=== PATIENT | female | born 1975 | race Caucasian/White ===

== ENCOUNTER 2019-05-29 10:25 | Day surgery (SDC) | payer SELFPAY ==
[2019-05-25 08:41] VITALS: BMI 23.1
[~2019-05-29 10:25] MED LIST: DEXAMETHASONE SOD PHOSPHATE 10 MG/ML 1 ML VIAL IV ONE; HYDROmorphone 0.5 MG/0.5 ML SYRINGE IVP PRN; LACTATED RINGERS 1,000 ML IV SCH; LIDOCAINE 1% 20 ML VIAL (10MG/ML) FOR IV START INTRADERMA PRN; ONDANSETRON 4 MG/2 ML VIAL IVP ONE; Pre Op ABX Message 1 EACH MISC MISCELLANE ONE; fentaNYL (PF) 50 MCG/ML 2 ML AMP IV PRN
[2019-05-29] MEDS ORDERED: fentaNYL (PF) 50 MCG/ML 2 ML AMP ONE (12:05)
[2019-05-29] MEDS ORDERED: LIDOCAINE 1% INJ 10MG/ML (20 ML MDV) ONE (12:05)
[2019-05-29] MEDS ORDERED: PROPOFOL 10 MG/ML 20 ML VIAL IV ONE (12:05)
[2019-05-29] MEDS ORDERED: MIDAZOLAM 2 MG/2 ML VIAL ONE (12:05)
--- NOTE | 2019-05-29 12:42 | P.OP ---
Date of Procedure: 05/29/19 Preoperative Diagnosis: Prolapse uterine fibroid Enlarged fibroid uterus Vaginal hemorrhage Anemia Postoperative Diagnosis: Same Procedure(s) Performed: Exam under anesthesia and Excision of prolapsed uterine fibroid Anesthesia: ANNE Surgeon: Brittani Cisse Estimated Blood Loss (ml): 5 IV fluids (ml): 200 Urine output (ml): 500 Pathology: other (Fibroid) Condition: stable Disposition: PACU Operative Findings: Approximately 3 x 3 cm mass protruding through the cervical os consistent with a prolapsed uterine fibroid. This was on a approximate 1 cm thick stalk. An exam under anesthetic the uterus is bulky and irregularly shaped. Approximately 14 weeks size. Description of Procedure: After the patient was met in the preoperative holding area and all questions were answered, she was taken to the operating room where anesthetic was administered without incident. She was positioned, prepped and draped in the dorsal lithotomy position. Bladder was drained for approximately 200 mL of clear urine. Bimanual examination was performed and the uterus was freely mobile but enlarged and irregularly shaped approximately 14 weeks size. The cervical mass was palpable on bimanual exam. A weighted speculum was placed in the vagina and the mass was visualized. This was grasped with a tenaculum and traction was applied. This allowed for visualization of a thick approximately 1 cm stalk. A Matt clamp was placed across this completely. Arnett scissors were utilized to amputate the mass. 0 Vicryl suture was then utilized to suture ligate the stalk. Bovie electrocautery was then applied to the end of the stalk as well. No active bleeding was noted from the resection site however there was some scant bleeding noted from the cervix likely of uterine source. This is not heavy. After some observation the procedure was then terminated and instruments removed from the vagina. All counts were correct. The patient was awoken from anesthetic without incident.
[2019-05-29 12:46] VITALS: TEMP 96.8
[2019-05-29 13:10] VITALS: RESP 16
[2019-05-29 13:47] VITALS: BP 147/86; PULSE 72
== END 2019-05-29 14:06 | disposition home or self-care (01) ==
LOC: OR 10:25
PROVIDERS: ATTEND Obstetrics & Gynecology
DX: D25.9 Leiomyoma of uterus, unspecified (principal); N86 Erosion and ectropion of cervix uteri; D64.9 Anemia, unspecified; Z98.891 History of uterine scar from previous surgery; Z88.6 Allergy status to analgesic agent; F17.210 Nicotine dependence, cigarettes, uncomplicated; G43.909 Migraine, unspecified, not intractable, without status migrainosus; Z79.899 Other long term (current) drug therapy
CPT/HCPCS: 81025; 86900; 86901; 88305; 86850; 58145; J2250; J1100; J2405; J2001; J3010; J2704

== ENCOUNTER 2022-06-23 08:16 | Emergency (ER) | payer BC ==
--- NOTE | 2022-06-23 09:13 | ED ---
General Adult HPI - General Chief complaint: Chest Pain Stated complaint: chest pain Time Seen by Provider: 06/23/22 08:28 Source: patient, RN notes reviewed, old records reviewed Mode of arrival: ambulatory Limitations: no limitations - History of Present Illness Initial comments: This is a 46-year-old female who presents emergency Department complaining of left-sided chest pain medially and inferiorly to her left breast. Patient states it hurts take a deep breath it hurts with palpation in the pain is a sharp pain. Patient denies being short of breath. Patient has any fever chills or cough. Patient denies any palpitations. Patient denies any radiation of the pain to her arm neck or back. Patient denies any diaphoretic episodes. Patient's abdominal pain patient denies nausea vomiting diarrhea per patient denies any swelling to legs or calf tenderness. Patient states she does not remember injuring it in any way. - Related Data Home Medications Medication Instructions Recorded Confirmed Ibuprofen [Motrin] 400 mg PO DIRECTED PRN 05/25/19 05/29/19 Iron(Dose Unknown) 1 tab PO DAILY 05/25/19 05/29/19 Multivitamins, Thera [Multivitamin 1 tab PO DAILY 05/25/19 05/29/19 (formulary)] Previous Rx's Medication Instructions Recorded Ibuprofen [Motrin] 600 mg PO Q6HR PRN #20 tab 06/23/22 Allergies Allergy/AdvReac Type Severity Reaction Status Date / Time ketorolac [From Toradol] Allergy throat Verified 06/23/22 08:24 closes up Review of Systems ROS Statement: Those systems with pertinent positive or pertinent negative responses have been documented in the HPI. ROS Other: All systems not noted in ROS Statement are negative. Past Medical History Additional Past Medical History / Comment(s): migraines, hx palpitations, hx anemia, pericarditis, pericardial effusion, plueral effusion, History of Any Multi-Drug Resistant Organisms: None Reported Past Surgical History: Section Additional Past Surgical History / Comment(s): removal of mole, Past Anesthesia/Blood Transfusion Reactions: No Reported Reaction Past Psychological History: No Psychological Hx Reported Smoking Status: Current every day smoker Past Alcohol Use History: Daily Past Drug Use History: None Reported - Past Family History Mother Family Medical History: No Reported History General Exam - General Exam Comments Initial Comments: GENERAL: Patient is well-developed and well-nourished. Patient is nontoxic and well- hydrated and is in mild distress. ENT: Neck is soft and supple. No significant lymphadenopathy is noted. Oropharynx is clear. Moist mucous membranes. Neck has full range of motion without eliciting any pain. EYES: The sclera were anicteric and conjunctiva were pink and moist. Extraocular movements were intact and pupils were equal round and reactive to light. Eyelids were unremarkable. PULMONARY: Unlabored respirations. Good breath sounds bilaterally. No audible rales rhonchi or wheezing was noted. CARDIOVASCULAR: There is a regular rate and rhythm without any murmurs gallops or rubs. Patient's chest pain is reproducible ABDOMEN: Soft and nontender with normal bowel sounds. SKIN: Skin is clear with no lesions or rashes and otherwise unremarkable. NEUROLOGIC: Patient is alert and oriented x3. Cranial nerves II through XII are grossly intact. Motor and sensory are also intact. Normal speech, volume and content. Symmetrical smile. MUSCULOSKELETAL: Normal extremities with adequate strength and full range of motion. No lower extremity swelling or edema. No calf tenderness. LYMPHATICS: No significant lymphadenopathy is noted PSYCHIATRIC: Normal psychiatric evaluation. Limitations: no limitations Course Vital Signs 06/23/22 08:21 Temperature 98 F Pulse Rate 92 Respiratory 18 Rate Blood Pressure 207/132 O2 Sat by Pulse 100 Oximetry Medical Decision Making - Medical Decision Making EKG shows sinus rhythm at 70 bpm OR interval is on a 27 dresses 93 Q-T intervals 390 QTC is 423 per patient's EKG shows no ST segment elevation or depression. Was pt. sent in by a medical professional or institution (, PA, SURVEY INTERVIEWER, urgent care, hospital, or skilled nursing...) When possible be specific @ -No Did you speak to anyone other than the patient for history (EMS, parent, family, police, friend...)? What history was obtained from this source @ -No Did you review nursing and triage notes (agree or disagree)? Why? @ -I reviewed and agree with nursing and triage notes Were old charts reviewed (outside hosp., previous admission, EMS record, old EKG, old radiological studies, urgent care reports/EKG's, skilled nursing records)? Report findings @ -No old charts were reviewed Differential Diagnosis (chest pain, altered mental status, abdominal pain women, abdominal pain men, vaginal bleeding, weakness, fever, dyspnea, syncope, headache, dizziness, GI bleed, back pain, seizure, CVA, palpatations, mental health)? @ -Differential Chest Pain: Stable Angina, Unstable Angina, STEMI, NSTEMI Aortic Dissection, Pneumothorax, Musculoskeletal, Esophageal Spasm GERD, Cholecystitis, Pancreatitis, Zoster, this is not meant to be an all-inclusive list. EKG interpreted by me (3pts min.). @ -As above X-rays interpreted by me (1pt min.). @ -Interpreted the chest x-ray shows no acute abnormality CT interpreted by me (1pt min.). @ -None done U/S interpreted by me (1pt. min.). @ -None done What testing was considered but not performed or refused? (CT, X-rays, U/S, labs)? Why? @ -None What meds were considered but not given or refused? Why? @ -None Did you discuss the management of the patient with other professionals (professionals i.e. , PA, SURVEY INTERVIEWER, lab, RT, psych nurse, professor of social work, welding systems and equipment repairer, teacher, guest services officer, case manager specialist)? Give summary @ -No Was smoking cessation discussed for >3mins.? @ -No Was critical care preformed (if so, how long)? @ -No Were there social determinants of health that impacted care today? How? (Homelessness, low income, unemployed, alcoholism, drug addiction, transportation, low edu. Level, literacy, decrease access to med. care, senior living, rehab)? @ -No Was there de-escalation of care discussed even if they declined (Discuss DNR or withdrawal of care, Hospice)? DNR status @ -No What co-morbidities impacted this encounter? (DM, HTN, Smoking, COPD, CAD, Cancer, CVA, ARF, Chemo, Hep., AIDS, mental health diagnosis, sleep apnea, morbid obesity)? @ -None Was patient admitted / discharged? Hospital course, mention meds given and route, prescriptions, significant lab abnormalities, going to OR and other pertinent info. @ -Patient had lab work done and indicated that she had no damage to the heart. Patient had been having constant chest pain for 2 days it was reproducible and Motrin did help. Undiagnosed new problem with uncertain prognosis? @ -No Drug Therapy requiring intensive monitoring for toxicity (Heparin, Nitro, Insulin, Cardizem)? @ -No Were any procedures done? @ -No Diagnosis/symptom? @ -Musculoskeletal chest pain Acute, or Chronic, or Acute on Chronic? @ -Acute Uncomplicated (without systemic symptoms) or Complicated (systemic symptoms)? @ -Uncomplicated Side effects of treatment? @ -No Exacerbation, Progression, or Severe Exacerbation? @ -No Poses a threat to life or bodily function? How? (Chest pain, USA, IA, pneumonia, PE, COPD, DKA, ARF, appy, cholecystitis, CVA, Diverticulitis, Homicidal, Suicidal, threat to staff... and all critical care pts) @ -No - Lab Data Result diagrams: 06/23/22 09:07 06/23/22 09:07 Lab Results 06/23/22 06/23/22 06/23/22 Range/Units 09:07 09:07 09:07 WBC 7.6 (3.8-10.6) k/uL RBC 4.69 (3.80-5.40) m/uL Hgb 15.9 (11.4-16.0) gm/dL Hct 46.6 H (34.0-46.0) % MCV 99.2 (80.0-100.0) fL MCH 33.9 (25.0-35.0) pg MCHC 34.2 (31.0-37.0) g/dL RDW 12.7 (11.5-15.5) % Plt Count 294 (150-450) k/uL MPV 7.8 Neutrophils % 61 % Lymphocytes % 30 % Monocytes % 5 % Eosinophils % 2 % Basophils % 1 % Neutrophils # 4.6 (1.3-7.7) k/uL Lymphocytes # 2.3 (1.0-4.8) k/uL Monocytes # 0.4 (0-1.0) k/uL Eosinophils # 0.1 (0-0.7) k/uL Basophils # 0.1 (0-0.2) k/uL PT 10.8 (9.0-12.0) sec INR 1.0 (<1.2) Sodium 139 (137-145) mmol/L Potassium 4.0 (3.5-5.1) mmol/L Chloride 106 (98-107) mmol/L Carbon Dioxide 25 (22-30) mmol/L Anion Gap 8 mmol/L BUN 10 (7-17) mg/dL Creatinine 0.68 (0.52-1.04) mg/dL Est GFR (CKD-EPI)AfAm >90 (>60 ml/min/1.73 sqM) Est GFR (CKD-EPI)NonAf >90 (>60 ml/min/1.73 sqM) Glucose 104 H (74-99) mg/dL Calcium 9.6 (8.4-10.2) mg/dL Magnesium 1.8 (1.6-2.3) mg/dL Total Bilirubin 0.6 (0.2-1.3) mg/dL AST 39 H (14-36) U/L ALT 47 H (4-34) U/L Alkaline Phosphatase 84 (38-126) U/L Troponin I (0.000-0.034) ng/mL Total Protein 7.8 (6.3-8.2) g/dL Albumin 4.7 (3.5-5.0) g/dL 06/23/22 Range/Units 09:07 WBC (3.8-10.6) k/uL RBC (3.80-5.40) m/uL Hgb (11.4-16.0) gm/dL Hct (34.0-46.0) % MCV (80.0-100.0) fL MCH (25.0-35.0) pg MCHC (31.0-37.0) g/dL RDW (11.5-15.5) % Plt Count (150-450) k/uL MPV Neutrophils % % Lymphocytes % % Monocytes % % Eosinophils % % Basophils % % Neutrophils # (1.3-7.7) k/uL Lymphocytes # (1.0-4.8) k/uL Monocytes # (0-1.0) k/uL Eosinophils # (0-0.7) k/uL Basophils # (0-0.2) k/uL PT (9.0-12.0) sec INR (<1.2) Sodium (137-145) mmol/L Potassium (3.5-5.1) mmol/L Chloride (98-107) mmol/L Carbon Dioxide (22-30) mmol/L Anion Gap mmol/L BUN (7-17) mg/dL Creatinine (0.52-1.04) mg/dL Est GFR (CKD-EPI)AfAm (>60 ml/min/1.73 sqM) Est GFR (CKD-EPI)NonAf (>60 ml/min/1.73 sqM) Glucose (74-99) mg/dL Calcium (8.4-10.2) mg/dL Magnesium (1.6-2.3) mg/dL Total Bilirubin (0.2-1.3) mg/dL AST (14-36) U/L ALT (4-34) U/L Alkaline Phosphatase (38-126) U/L Troponin I <0.012 (0.000-0.034) ng/mL Total Protein (6.3-8.2) g/dL Albumin (3.5-5.0) g/dL Disposition Clinical Impression: Musculoskeletal chest pain Disposition: HOME SELF-CARE Condition: Good Instructions (If sedation given, give patient instructions): Musculoskeletal Pain (ED) Prescriptions: Ibuprofen [Motrin] 600 mg PO Q6HR PRN #20 tab PRN Reason: For pain Is patient prescribed a controlled substance at d/c from ED?: No Referrals: Shirin Tran DO [Primary Care Provider] - 1-2 days Time of Disposition: 10:23
[2022-06-23 09:17] LABS: Basophils # (A) 0.1 k/uL (0-0.2); Basophils % (A) 1 %; Eosinophils # (A) 0.1 k/uL (0-0.7); Eosinophils % (A) 2 %; HCT 46.6 % (34.0-46.0); HGB 15.9 gm/dL (11.4-16.0); Lymphocytes # (A) 2.3 k/uL (1.0-4.8); Lymphocytes % (A) 30 %; MCH 33.9 pg (25.0-35.0); MCHC 34.2 g/dL (31.0-37.0); MCV 99.2 fL (80.0-100.0); Mean Platelet Volume 7.8; Monocytes # (A) 0.4 k/uL (0-1.0); Monocytes % (A) 5 %; Neutrophils # (A) 4.6 k/uL (1.3-7.7); Neutrophils % (A) 61 %; Platelet Count 294 k/uL (150-450); RBC 4.69 m/uL (3.80-5.40); RDW 12.7 % (11.5-15.5); WBC 7.6 k/uL (3.8-10.6)
[2022-06-23 09:26] LABS: Prothrombin Time 10.8 sec (9.0-12.0)
[2022-06-23 09:29] LABS: ALT 47 U/L (4-34); AST 39 U/L (14-36); African American GFR (CKD) >90 (>60 ml/min/1.73 sqM); Albumin 4.7 g/dL (3.5-5.0); Alkaline Phosphatase 84 U/L (38-126); Anion Gap 8 mmol/L; Blood Urea Nitrogen 10 mg/dL (7-17); Calcium 9.6 mg/dL (8.4-10.2); Carbon Dioxide 25 mmol/L (22-30); Chloride 106 mmol/L (98-107); Glucose 104 mg/dL (74-99); Magnesium 1.8 mg/dL (1.6-2.3); Non-African American GFR(CKD) >90 (>60 ml/min/1.73 sqM); Sodium 139 mmol/L (137-145); Total Bilirubin 0.6 mg/dL (0.2-1.3); Total Protein 7.8 g/dL (6.3-8.2)
--- NOTE | 2022-06-23 09:40 | XR ---
EXAMINATION TYPE: XR chest 2V DATE OF EXAM: 06/23/2022 COMPARISON: None HISTORY: 46-year-old female with chest pain TECHNIQUE: PA and lateral views FINDINGS: Heart normal size. Aorta and pulmonary vasculature within normal limits. Hazy lower lung densities re lating to overlying soft tissue. No consolidation or pleural effusion. IMPRESSION: No acute cardiopulmonary process.
[2022-06-23] MEDS ORDERED: IBUPROFEN 600 MG TAB PO STA (10:14)
[2022-06-23 10:41] VITALS: BP 153/116; PULSE 72; RESP 16; TEMP 98.2
== END 2022-06-23 10:45 | disposition home or self-care (01) ==
LOC: EC 08:16
DX: R07.89 Other chest pain (principal); G43.909 Migraine, unspecified, not intractable, without status migrainosus; Z88.6 Allergy status to analgesic agent; Z79.1 Long term (current) use of non-steroidal anti-inflammatories (NSAID); Z87.891 Personal history of nicotine dependence
CPT/HCPCS: 36415; 71046; 80053; 83735; 84484; 85025; 85610; 93005; 99285

== ENCOUNTER 2023-05-25 15:08 | Inpatient (IN) | payer BC ==
[2023-05-25] MEDS: SODIUM CHLORIDE 0.9% 1,000 ML IV ONE (15:22)
[2023-05-25] MEDS ORDERED: HEPARIN SODIUM 1,000 UN/ML (10ML VL) ONE (17:02)
[2023-05-25] MEDS ORDERED: VERAPAMIL 2.5 MG/ML 2 ML AMP ONE (17:02)
[2023-05-25] MEDS ORDERED: ASPIRIN 325 MG TAB ONE (17:03)
[2023-05-25] MEDS: CLOPIDOGREL 75 MG TAB PO ONE (17:10)
[2023-05-25] MEDS: ASPIRIN 325 MG TAB PO ONE (17:10)
[2023-05-25] MEDS ORDERED: CLOPIDOGREL 75 MG TAB ONE (17:16)
[2023-05-25] MEDS ORDERED: fentaNYL (PF) 50 MCG/ML 2 ML AMP ONE (17:22)
[2023-05-25] MEDS: VERAPAMIL SYRINGE (5 MG/10 ML) INTRAARTER ONE (17:23)
[2023-05-25] MEDS: HEPARIN SODIUM 1,000 UN/ML (10ML VL) IVP ONE (17:24)
[2023-05-25] MEDS: MIDAZOLAM 2 MG/2 ML VIAL IVP ONE (17:24)
[2023-05-25] MEDS: fentaNYL (PF) 50 MCG/ML 2 ML AMP IVP ONE (17:25)
[2023-05-25] MEDS: NITROGLYCERIN 1000MCG/10ML SYRINGE INTRACORON ONE (17:36)
[2023-05-25] MEDS: IOPAMIDOL-370 100ML BTL INJ ONE (17:42)
[2023-05-25] MEDS ORDERED: ATROPINE SULFATE 0.1 MG/ML 10ML SYRINGE IV PRN (17:46)
[2023-05-25] MEDS ORDERED: RX INFO: IV CONTRAST WAS GIVEN 1 EACH MISC MISCELLANE PRN (17:46)
[2023-05-25] MEDS ORDERED: MAG HYDROX/AL HYDROX/SIMETH 30 ML CUP PO PRN (17:46)
[2023-05-25] MEDS ORDERED: ZOLPIDEM 5 MG TAB PO PRN (17:46)
[2023-05-25] MEDS ORDERED: NITROGLYCERIN SL TABS 0.4 MG TAB SUBLINGUAL PRN (17:46)
--- NOTE | 2023-05-25 17:49 | P.PCN ---
Date of Procedure: 05/25/23 Operative Findings: PERCUTANEOUS CORONARY INTERVENTION Performing physician Hal Hager M.D. Procedure Performed: Successful stenting of the second obtuse marginal branch using 2.5 x 15 mm Xience drug-eluting stent with an excellent angiographic results. Indication: Acute non-ST elevation myocardial infarction in this 47-year-old female patient who underwent heart catheterization and was found to have severe stenosis/disease involving the second OM Approach: Right radial artery Complications: None Level of Sedation: Moderate with a sedation length of 20 minutes Procedure Discussion: After obtaining an informed consent the patient was brought to the cardiac laborer pullet farm. Over 018 wire and I did exchange the radial sheath. Anticoagulation was initiated using heparin with continuous ACT monitoring. Subsequently I did en jason the left main using CLS 3 guide. I did where the OM using a run-through wire. Predilatation was performed using 2.5 mm balloon before I deployed 2.5 x 15 mm stent where the stent was positioned under fluoroscopy guidance and deployed under fluoroscopy guidance. Final angiogram showed excellent angiographic results and the procedure was completed was no complication Postprocedure Management: 1. Dual antiplatelet therapy using aspirin and Plavix for at least 6 months 2. Aggressive cholesterol control 3. Risk factors modification
[2023-05-25] MEDS: SODIUM CHLORIDE 0.9% 1,000 ML in EMPTY BAG 1 BAG IV SCH (18:08)
[2023-05-25 18:26] VITALS: RESP 18
[2023-05-25] MEDS: ATORVASTATIN 80 MG TAB PO SCH (20:33)
[2023-05-26] MEDS: carvediloL 3.125 MG TAB PO STA (05:09)
[2023-05-26] MEDS: VALSARTAN 80 MG TAB PO STA (05:09)
[2023-05-26] MEDS: carvediloL 3.125 MG TAB PO SCH (06:36)
[2023-05-26] MEDS: ASPIRIN 81 MG PO SCH (08:13)
[2023-05-26] MEDS: CLOPIDOGREL 75 MG TAB PO SCH (08:13)
[2023-05-26 08:26] VITALS: BP 163/93; PULSE 74; TEMP 98.1
--- NOTE | 2023-05-26 09:21 | P.PN ---
Subjective Progress Note Date: 05/26/23 History of present illness: This is a 47-year-old female with previous past medical history of smoking pre sented to [facility] with palpitations, heart racing dizziness without loss of consciousness. Patient was diagnosed with acute pericarditis, non-ST elevated myocardial infarction underwent cardiac catheterization by Dr. Hager which revealed coronary artery disease involving the left circumflex/OM. Patient was then transferred to [facility] and status post stenting was done yesterday. Approach was through the right wrist with no signs of hematoma. She denies any chest pain this morning. She has been started on dual antiplatelet therapy as well as statin and beta perla. Physical examination: Gen: This is a 47-year-old female she is resting on the edge of the bed and appears to be comfortable, no acute distress. VS: reviewed LUNGS: Clear to auscultation. No wheezes or rhonchi. No intercostal retractions. HEART: Regular rate and rhythm. No murmur. EXTREMITIES: No pedal edema. Assessment: Non-ST elevated myocardial infarction status post successful stenting of the second obtuse marginal branch Tobacco use and dependence Hypertension Plan: Patient is cleared from cardiology for discharge home and may follow up with Dr. Hager in the office in one week. Patient's no cardiac medications have been sent to her pharmacy. Nurse practitioner note has been reviewed, I agree with documented findings and plan of care. Patient was seen and examined. Objective - Vital Signs Vital signs: Vital Signs Temp 98.1 F 05/26/23 08:00 Pulse 74 05/26/23 08:00 Resp 18 05/26/23 08:00 BP 163/93 05/26/23 08:00 Pulse Ox 98 05/26/23 08:00 FiO2 Intake & Output 05/25/23 05/26/23 05/26/23 18:59 06:59 18:59 Intake Total 300 Balance 300 Weight 66 kg Intake: IV 300 Other: # Voids 2
[2023-05-26 13:42] VITALS: BMI 25.0
--- NOTE | 2023-05-26 23:14 | P.HPIM ---
History of Present Illness Please consider this note as combined H&P and discharge summary history of present illness : This is a pleasant 38 denies old female with multiple medical problems as below. Initially she presents to [facility] for chest pain radiating to the shoulder. She had full workup at [facility] as below. Potassium 4.1, sodium 143, creatinine 0.8, glucose 102. AST slightly elevated 48 and ALT 75. Total bilirubin is an within the reference range at 0.3. Magnesium 1.8. Lipase normal at 59. Calcium 8.9. Alcohol level elevated at 76. Serum hCG is 2.4 which is within the reference range. Hemoglobin A1c is normal at 5.4% TSH normal at 1.6. GFR is 79.6. Troponin is elevated at 3.6. BNP is slightly up at 125. Cholesterol is 255 slightly elevated, LDL elevated 164. Abdomen B12 is 277, folate 66 wbc 6.3, Hb 13.7 , platelet 220 UA IS normal d-dimer 149 Chest x-ray: No acute process. Line echocardiogram showing ejection fraction of 65-70% Moderate mitral regurgitation and moderate to severe tricuspid regurgitation she had cardiac cath: Severe single vessel coronary artery disease involving the left circumflex, OM Under, to transfer the patient to [facility] for PCI to left circumflex Currently patient lying in bed comfortable denies chest pain, denies any other new complaint. She is status post PCI to left circumflex artery by registry np. Her chest pain resolved. No other symptoms. She was counseled to quit alcohol but she declines She denies any other new complaints and she is eager to go home today. at bedside. Review of systems CONSTITUTIONAL: No fever, no malaise, no fatigue. HEENT: No recent visual problems or hearing problems. Denied any sore throat. CARDIOVASCULAR: No orthopnea, PND, no palpitations, no syncope. PULMONARY: No shortness of breath, no cough, no hemoptysis. GASTROINTESTINAL: No diarrhea, no nausea, no vomiting, no abdominal pain. Normoactive bowel sounds. NEUROLOGICAL: No headaches, no weakness, no numbness. HEMATOLOGICAL: Denies any bleeding or petechiae. GENITOURINARY: Denies any burning micturition, frequency, or urgency. MUSCULOSKELETAL/RHEUMATOLOGICAL: Denies any joint pain, swelling, or any muscle pain. ENDOCRINE: Denies any polyuria or polydipsia. physical exam GENERAL: The patient is alert and oriented x3, not in any acute distress. Well developed, well nourished. HEENT: Pupils are round and equally reacting to light. EOMI. No scleral icterus. No conjunctival pallor. Normocephalic, atraumatic. No pharyngeal erythema. No thyromegaly. CARDIOVASCULAR: S1 and S2 present. No murmurs, rubs, or gallops. PULMONARY: Chest is clear to auscultation, no wheezing , no crackles. ABDOMEN: Soft, nontender, nondistended, normoactive bowel sounds. No palpable organomegaly. MUSCULOSKELETAL: No joint swelling or deformity. EXTREMITIES: No cyanosis, clubbing, or pedal edema. NEUROLOGICAL: Gross neurological examination did not reveal any focal deficits. SKIN: No rashes. no petechiae. Diagnoses: Coronary artery disease status post PCI to left circumflex Valvular heart disease with moderate mitral regurgitation and tricuspid regurgitation Alcohol use disorder Plan: Continue with dual antiplatelet therapy with aspirin and Plavix importance of advanced therapies explained as well as risks including but not limited to the brain bleed and she verbalized understanding and acceptance Continue with Coreg Continue with Lipitor Cardiology consult who cleared Patient for discharge I counseled the patient to quit drinking alcohol she declined stating she will cut down only Prescription sent to pharmacy before cartilage team Patient therefore discharged by cardiology team. Patient eager to be discharged home today. Problems and management plan were discussed with the patient and he verbalized understanding and acceptance Patient was found stable and can be discharged home in guarded prognosis however he needs follow-up as an outpatient. Patient was instructed to follow up with PCP Dr. Gonzalez within one week and patient agrees Patient was instructed to follow up with Dr. Hager registry np in 1 week after discharge Time spent more than 35 minutes Past Medical History Additional Past Medical History / Comment(s): migraines, hx palpitations, hx anemia, pericarditis, pericardial effusion, plueral effusion, plerusy History of Any Multi-Drug Resistant Organisms: None Reported Past Surgical History: Section Additional Past Surgical History / Comment(s): removal of mole, Past Anesthesia/Blood Transfusion Reactions: No Reported Reaction Past Psychological History: No Psychological Hx Reported Smoking Status: Current every day smoker Past Alcohol Use History: Daily Additional Past Alcohol Use History / Comment(s): pt. states she has one cocktail a night, only smokes about 3 cigs a day Past Drug Use History: None Reported - Past Family History Mother Family Medical History: No Reported History Medications and Allergies Home Medications Medication Instructions Recorded Confirmed Type Aspirin 81 mg PO DAILY tab 05/26/23 Rx Atorvastatin [Lipitor] 80 mg PO HS #90 tab 05/26/23 Rx Clopidogrel [Plavix] 75 mg PO DAILY #90 tab 05/26/23 Rx Nitroglycerin Sl Tabs [Nitrostat] 0.4 mg SUBLINGUAL Q5M PRN #25 tab 05/26/23 Rx carvediloL [Coreg] 3.125 mg PO BID-W/MEALS #180 tab 05/26/23 Rx Allergies Allergy/AdvReac Type Severity Reaction Status Date / Time chocolate flavor Allergy Anaphylaxis Verified 05/25/23 19:52 ketorolac [From Toradol] Allergy Anaphylaxis Verified 05/25/23 19:50 Physical Exam Vitals: Vital Signs Temp Pulse Pulse Resp BP Pulse Ox 05/26/23 04:00 98.2 F 79 18 171/109 100 05/26/23 00:00 98.2 F 79 18 148/96 97 05/25/23 20:00 98.1 F 67 18 152/107 99 05/25/23 18:16 98 F 60 18 167/115 98 05/25/23 18:11 98.1 F 62 18 169/96 100 05/25/23 18:01 98.1 F 62 18 169/96 100 05/25/23 15:37 90 16 146/92 99 Intake and Output 05/25/23 05/25/23 05/26/23 14:59 22:59 06:59 Intake Total 300 Balance 300 Intake: IV 300 Other: # Voids 2 Weight 66 kg Thrombosis Risk Factor Assmnt - Choose All That Apply Each Factor Represents 1 point: Age 41-60 years, Obesity (BMI >25) Other Risk Factors: No Thrombosis Risk Factor Assessment Total Risk Factor Score: 2 Thrombosis Risk Factor Assessment Level: Low Risk
== END 2023-05-26 13:25 | disposition home or self-care (01) | DRG 322 ==
LOC: 3SCARD 15:27
PROVIDERS: ADMIT Internal Medicine; ATTEND Internal Medicine
PROC: 027034Z Dilation of Coronary Artery, One Artery with Drug-eluting Intraluminal Device, Percutaneous Approach (ICD-10-PCS; principal; 2023-05-25 17:25)
DX: I21.4 Non-ST elevation (NSTEMI) myocardial infarction (principal); I08.1 Rheumatic disorders of both mitral and tricuspid valves; I10 Essential (primary) hypertension; F17.210 Nicotine dependence, cigarettes, uncomplicated; I25.10 Atherosclerotic heart disease of native coronary artery without angina pectoris; Z79.899 Other long term (current) drug therapy; Z79.82 Long term (current) use of aspirin; Z79.02 Long term (current) use of antithrombotics/antiplatelets

== ENCOUNTER → 2024-09-22 | Outpatient (CLI) | payer BC ==
[2024-09-22 19:01] LABS: ALT 43 U/L (8-44); AST 30 U/L (13-35); Chol/HDL Ratio 4.62 Ratio; LDL Cholesterol,Calculated 194.1 mg/dL (0.0-131.0)
== END | disposition home or self-care (01) ==
LOC: LABWHC1 13:35
PROVIDERS: ATTEND Internal Medicine Interventional Cardiology
DX: E78.2 Mixed hyperlipidemia (principal)
CPT/HCPCS: 36415; 80061; 84450; 84460

== ENCOUNTER → 2024-12-04 | Outpatient (CLI) | payer BC ==
[2024-12-04 15:08] LABS: Partial Thromboplastin Time 24.3 sec (22.0-30.0); Prothrombin Time 11.2 sec (10.0-12.5)
[2024-12-04 19:27] LABS: Basophils # (A) 0.05 X 10*3/uL (0.00-0.10); Basophils % (A) 0.6 %; Eosinophils # (A) 0.04 X 10*3/uL (0.04-0.35); Eosinophils % (A) 0.5 %; HCT 43.1 % (37.2-46.3); HGB 14.2 g/dL (12.0-15.0); Lymphocytes # (A) 2.08 X 10*3/uL (0.90-5.00); Lymphocytes % (A) 24.6 %; MCH 33.3 pg (27.0-32.0); MCHC 32.9 g/dL (32.0-37.0); MCV 100.9 FL (80.0-97.0); Mean Platelet Volume 9.3 FL (9.5-12.2); Monocytes # (A) 0.47 X 10*3/uL (0.20-1.00); Monocytes % (A) 5.6 %; NRBC Per 100 WBC 0 X 10*3/uL (0.00-0.01); Neutrophils # (A) 5.73 X 10*3/uL (1.80-7.70); Neutrophils % (A) 67.8 %; Platelet Count 601 X 10*3/uL (140-440); RBC 4.27 X 10*6/uL (4.10-5.20); RDW 12.5 % (11.5-14.5); WBC 8.45 X 10*3/uL (4.50-10.00)
[2024-12-04 19:56] LABS: Erythrocyte Sedimentation Rate 19 mm/Hr (0-30)
[2024-12-04 20:02] LABS: % Iron Saturation 37.34 (12.00-45.00); ALT 64 U/L (8-44); AST 40 U/L (13-35); Albumin 4.5 g/dL (3.8-4.9); Albumin/Globulin Ratio 1.61 Ratio (1.60-3.17); Alkaline Phosphatase 117 U/L (41-126); BUN/Creat Ratio 17.38 Ratio (12.00-20.00); Blood Urea Nitrogen 13.9 mg/dL (9.0-27.0); Calcium 9.9 mg/dL (8.7-10.3); Chloride 102 mmol/L (96-109); Globulin 2.8 g/dL (1.6-3.3); Glucose 182 mg/dL (70-110); Iron 115 UG/DL (50-170); Potassium 4.6 mmol/L (3.5-5.5); Sodium 140 mmol/L (135-145); Total Bilirubin 0.3 mg/dL (0.3-1.2); Total Iron Binding Capacity 308 UG/DL (228-460); Total Protein 7.3 g/dL (6.2-8.2)
== END | disposition home or self-care (01) ==
LOC: LABWHC1 14:12
PROVIDERS: ATTEND Family Medicine
DX: J02.9 Acute pharyngitis, unspecified (principal); R23.3 Spontaneous ecchymoses
CPT/HCPCS: 36415; 80053; 82306; 82607; 82728; 82746; 83540; 83550; 85025; 85610; 85652; 85730; 86038

== ENCOUNTER → 2024-12-18 | Outpatient (CLI) | payer BC ==
[2024-12-18 15:44] LABS: ALT 40 U/L (8-44); AST 30 U/L (13-35); Cholesterol 200.00 mg/dL (0.00-200.00); HDL Cholesterol 48.80 mg/dL (40.00-60.00); LDL Cholesterol,Calculated 123.4 mg/dL (0.0-131.0); Triglycerides 139.00 mg/dL (0.00-149.00); VLDL Calculation 27.80 mg/dL (5.00-40.00)
== END | disposition home or self-care (01) ==
LOC: LABWHC1 11:32
PROVIDERS: ATTEND Internal Medicine Interventional Cardiology
DX: E78.2 Mixed hyperlipidemia (principal)
CPT/HCPCS: 36415; 80061; 84450; 84460